=== PATIENT | male | born 1995 | race Asian ===

== ENCOUNTER 2018-10-30 10:32 | Outpatient (CLI) | payer OTHER ==
[2018-10-30 10:59] LABS: POTASSIUM 3.8 mmol/L (3.6-5.2)
== END 2018-10-30 21:51 | disposition home or self-care (01) ==
LOC: LABW 10:32
PROVIDERS: Internal Medicine
DX: D64.9 Anemia, unspecified (principal); E23.0 Hypopituitarism; L30.9 Dermatitis, unspecified
CPT/HCPCS: 36415; 80053

== ENCOUNTER 2019-04-14 10:44 | Outpatient (CLI) | payer OTHER ==
[2019-04-14 11:02] LABS: PLATELET COUNT 294 K/uL (142-355)
== END 2019-04-14 19:44 | disposition home or self-care (01) ==
LOC: LABW 10:44
PROVIDERS: Internal Medicine
DX: D64.9 Anemia, unspecified (principal)
CPT/HCPCS: 36415; 85027